=== PATIENT | male | born 1960 | race African-American/Black ===

== ENCOUNTER 2021-10-24 11:35 | Inpatient (IN) | payer OTHER ==
[2021-10-24 12:01] VITALS: BMI 19.2
[2021-10-24] MEDS ORDERED: ACETAMINOPHEN 325 MG TABLET (FP) PO PRN ×2 (12:54)
[2021-10-24] MEDS ORDERED: DICYCLOMINE HCL 10 MG CAPSULE PO PRN (12:54)
[2021-10-24] MEDS ORDERED: MAG HYDROX/AL HYDROX/SIMETH 30 ML UNIT-DOSE CUP PO PRN (12:54)
[2021-10-24] MEDS ORDERED: ONDANSETRON *ODT* 4 MG TABLET SL PRN (12:54)
[2021-10-24] MEDS ORDERED: BISMUTH SUBSALICYLATE 524 MG/30 ML PO PRN (12:54)
[2021-10-24] MEDS ORDERED: LOPERAMIDE HCL 2 MG CAPSULE PO PRN (12:54)
[2021-10-24] MEDS ORDERED: IBUPROFEN 600 MG TABLET (FP) PO PRN (12:54)
[2021-10-24] MEDS ORDERED: LORazepam 1 MG TABLET PO PRN (12:54)
[2021-10-24] MEDS ORDERED: NICOTINE 10 MG CARTRIDGE (INHALER) IH PRN (12:54)
[2021-10-24] MEDS ORDERED: MAGNESIUM HYDROX 2400MG/30ML ORAL SUSPENSION 30 ML CUP PO PRN (12:54)
[2021-10-24] MEDS ORDERED: IBUPROFEN 400 MG TABLET (FP) PO PRN (12:54)
[2021-10-24] MEDS ORDERED: MAGNESIUM CITRATE 300 ML BOTTLE PO PRN (12:54)
[2021-10-24] MEDS: hydrOXYzine PAMOATE 25 MG CAPSULE (FP) PO SCH ×3 (18:18→22:53)
[2021-10-24] MEDS: LORazepam 2 MG TABLET PO SCH ×2 (18:18→22:51)
[2021-10-24] MEDS: METHOCARBAMOL 500 MG TABLET PO PRN (22:50)
[2021-10-24] MEDS: THIAMINE HCL 100 MG TABLET (FP) PO SCH (22:50)
[2021-10-24] MEDS: MELATONIN 5 MG TABLETS PO SCH (22:51)
[2021-10-25] MEDS: LORazepam 2 MG TABLET PO SCH ×4 (05:50→22:19)
[2021-10-25] MEDS: hydrOXYzine PAMOATE 25 MG CAPSULE (FP) PO SCH ×5 (05:51→22:19)
[2021-10-25] MEDS ORDERED: methaDONE HCL 10 MG TABLET PO ONE (08:31)
[2021-10-25] MEDS ORDERED: methaDONE 40 MG, methaDONE 20 MG PO ONE (08:45)
[2021-10-25] MEDS ORDERED: methaDONE HCL 10 MG TABLET ONE (09:57)
[2021-10-25] MEDS ORDERED: methaDONE HCL 40 MG DISPERSABLE TABLET ONE (09:58)
[2021-10-25] MEDS: LISINOPRIL 10 MG TABLET PO SCH (10:22)
[2021-10-25] MEDS: TAMSULOSIN HCL 0.4 MG CAP PO SCH (10:22)
[2021-10-25] MEDS: PRENATAL VITAMINS W/ FOLIC ACID TABLET (FP) PO SCH (10:23)
[2021-10-25 11:39] LABS: HEMATOCRIT 40.7 % (35.4-49); HEMOGLOBIN 13.4 GM/dL (11.7-16.9); MCH 30.1 pg (25.7-33.7); MEAN CELL VOLUME 91.2 fl (80-96); MEAN PLT VOLUME 10.3 fl (7.5-11.1); PLATELET COUNT 310 10^3/uL (134-434); RBC 4.47 M/mm3 (4.00-5.60); RDW 14.6 % (11.9-15.9); WHITE BLOOD COUNT 2.6 K/mm3 (4.0-10.0)
[2021-10-25] MEDS: ELVITEG/COB/EMTRI/TENOF (GENVOYA) TABLET (NF) PO SCH (11:40)
[2021-10-25 12:01] LABS: ALBUMIN 3.3 g/dl (3.4-5.0)
[2021-10-25 12:03] LABS: CREATININE 0.9 mg/dL (0.55-1.3)
[2021-10-25 12:05] LABS: BILIRUBIN,TOTAL 0.5 mg/dL (0.2-1); TOT PROT 8.1 g/dl (6.4-8.2)
[2021-10-25] MEDS: THIAMINE HCL 100 MG TABLET (FP) PO SCH (22:19)
[2021-10-25] MEDS: MELATONIN 5 MG TABLETS PO SCH (22:19)
[2021-10-26] MEDS ORDERED: methaDONE HCL 10 MG TABLET ONE (04:38)
[2021-10-26] MEDS ORDERED: methaDONE HCL 40 MG DISPERSABLE TABLET ONE (04:41)
[2021-10-26] MEDS ORDERED: methaDONE HCL 10 MG TABLET PO SCH (06:00)
[2021-10-26] MEDS: LORazepam 1 MG TABLET PO SCH ×4 (06:45→22:59)
[2021-10-26] MEDS: methaDONE 40 MG, methaDONE 20 MG PO SCH (06:45)
[2021-10-26] MEDS: hydrOXYzine PAMOATE 25 MG CAPSULE (FP) PO SCH ×5 (06:46→22:59)
[2021-10-26] MEDS: ELVITEG/COB/EMTRI/TENOF (GENVOYA) TABLET (NF) PO SCH (07:12)
[2021-10-26] MEDS: TAMSULOSIN HCL 0.4 MG CAP PO SCH (08:31)
[2021-10-26] MEDS: PRENATAL VITAMINS W/ FOLIC ACID TABLET (FP) PO SCH (10:53)
[2021-10-26] MEDS: LISINOPRIL 10 MG TABLET PO SCH (10:53)
[2021-10-26] MEDS: METHOCARBAMOL 500 MG TABLET PO PRN (10:53)
[2021-10-26] MEDS: MELATONIN 5 MG TABLETS PO SCH (22:59)
[2021-10-26] MEDS: THIAMINE HCL 100 MG TABLET (FP) PO SCH (22:59)
[2021-10-27] MEDS ORDERED: LORazepam 0.5 MG TABLET PO PRN
[2021-10-27] MEDS ORDERED: methaDONE HCL 40 MG DISPERSABLE TABLET ONE (04:12)
[2021-10-27] MEDS ORDERED: methaDONE HCL 10 MG TABLET ONE (04:12)
[2021-10-27] MEDS: methaDONE 40 MG, methaDONE 20 MG PO SCH (05:41)
[2021-10-27] MEDS: LORazepam 0.5 MG TABLET PO SCH ×4 (05:41→23:05)
[2021-10-27] MEDS: BENZOCAINE/MENTHOL (CHLORASEPTIC ) LOZENGE MM PRN ×2 (05:45→09:14)
[2021-10-27] MEDS: hydrOXYzine PAMOATE 25 MG CAPSULE (FP) PO SCH ×5 (05:45→23:05)
[2021-10-27] MEDS: ELVITEG/COB/EMTRI/TENOF (GENVOYA) TABLET (NF) PO SCH (08:23)
[2021-10-27] MEDS: TAMSULOSIN HCL 0.4 MG CAP PO SCH (08:25)
[2021-10-27] MEDS: LISINOPRIL 10 MG TABLET PO SCH (10:39)
[2021-10-27] MEDS: PRENATAL VITAMINS W/ FOLIC ACID TABLET (FP) PO SCH (10:40)
[2021-10-27] MEDS: MELATONIN 5 MG TABLETS PO SCH (23:05)
[2021-10-27] MEDS: THIAMINE HCL 100 MG TABLET (FP) PO SCH (23:06)
[2021-10-28] MEDS ORDERED: methaDONE HCL 40 MG DISPERSABLE TABLET ONE (03:59)
[2021-10-28] MEDS ORDERED: methaDONE HCL 10 MG TABLET ONE (03:59)
[2021-10-28] MEDS ORDERED: LORazepam 0.5 MG TABLET PO ONE (05:00)
[2021-10-28] MEDS: methaDONE 40 MG, methaDONE 20 MG PO SCH (05:40)
[2021-10-28] MEDS: hydrOXYzine PAMOATE 25 MG CAPSULE (FP) PO SCH ×2 (05:41→10:24)
[2021-10-28 09:17] VITALS: BP 119/82; PULSE 68; TEMP 97.8
[2021-10-28] MEDS: LISINOPRIL 10 MG TABLET PO SCH (10:23)
[2021-10-28] MEDS: PRENATAL VITAMINS W/ FOLIC ACID TABLET (FP) PO SCH (10:23)
[2021-10-28] MEDS: TAMSULOSIN HCL 0.4 MG CAP PO SCH (10:24)
[2021-10-28] MEDS: ELVITEG/COB/EMTRI/TENOF (GENVOYA) TABLET (NF) PO SCH (12:01)
== END 2021-10-28 12:34 | disposition home or self-care (01) | DRG 773 ==
LOC: YASAS 11:35 → Y6N 16:44
PROVIDERS: ADMIT Allergy & Immunology; ATTEND Surgery
PROC: HZ2ZZZZ Detoxification Services for Substance Abuse Treatment (ICD-10-PCS; principal; 2021-10-24)
DX: F10.230 Alcohol dependence with withdrawal, uncomplicated (principal); F11.20 Opioid dependence, uncomplicated; F14.20 Cocaine dependence, uncomplicated; F19.282 Other psychoactive substance dependence with psychoactive substance-induced sleep disorder; F19.280 Other psychoactive substance dependence with psychoactive substance-induced anxiety disorder; Z21 Asymptomatic human immunodeficiency virus [HIV] infection status; D72.819 Decreased white blood cell count, unspecified; I10 Essential (primary) hypertension; N40.0 Benign prostatic hyperplasia without lower urinary tract symptoms; Z87.891 Personal history of nicotine dependence
CPT/HCPCS: 36415; 80053; 82962; 85027; 86593; 86780; C9803-CS; U0003; U0005

== ENCOUNTER 2023-06-09 16:21 | Inpatient (IN) | payer OTHER ==
[2023-06-09 17:27] VITALS: BMI 19.8
[2023-06-09] MEDS ORDERED: methaDONE HCL 10 MG TABLET (FOR DETOX USE ONLY) PO ONE (20:52)
[2023-06-09] MEDS ORDERED: NALOXONE HCL 0.4 MG/ML VIAL IM PRN (20:53)
[2023-06-09] MEDS ORDERED: IBUPROFEN 400 MG TABLET (FP) PO PRN (20:53)
[2023-06-09] MEDS ORDERED: BENZOCAINE/MENTHOL (CHLORASEPTIC ) LOZENGE MM PRN (20:53)
[2023-06-09] MEDS ORDERED: NALOXONE HCL (KLOXXADO) 8 MG SPRAY NS PRN (20:53)
[2023-06-09] MEDS ORDERED: MAG HYDROX/AL HYDROX/SIMETH 30 ML UNIT-DOSE CUP PO PRN (20:53)
[2023-06-09] MEDS ORDERED: guaiFENesin 600 MG TABLET.ER (FP) PO PRN (20:53)
[2023-06-09] MEDS ORDERED: LOPERAMIDE HCL 2 MG CAPSULE PO PRN (20:53)
[2023-06-09] MEDS ORDERED: POLYETHYLENE GLYCOL (HEALTHYLAX) 3350 17 GM PACKET PO PRN (20:53)
[2023-06-09] MEDS ORDERED: DICYCLOMINE HCL 10 MG CAPSULE PO PRN (20:53)
[2023-06-09] MEDS ORDERED: BENZONATATE 200 MG CAPSULE PO PRN (20:53)
[2023-06-09] MEDS ORDERED: BISMUTH SUBSALICYLATE 524 MG/30 ML PO PRN (20:53)
[2023-06-09] MEDS ORDERED: MAGNESIUM HYDROX 2400MG/30ML ORAL SUSPENSION 30 ML CUP PO PRN (20:53)
[2023-06-09] MEDS ORDERED: ACETAMINOPHEN 325 MG TABLET (FP) PO PRN (20:53)
[2023-06-09] MEDS ORDERED: P-EPHED 60MG/TRIPROLIDI 2.5MG TABLET PO PRN (20:53)
[2023-06-09] MEDS ORDERED: methaDONE HCL 10 MG TABLET (FOR DETOX USE ONLY) ONE (21:59)
[2023-06-09] MEDS: MELATONIN 5 MG TABLETS PO SCH (22:58)
[2023-06-09] MEDS: METHOCARBAMOL 500 MG TABLET PO PRN (22:59)
[2023-06-09] MEDS: diazePAM 5 MG TABLET PO SCH (22:59)
[2023-06-09] MEDS: THIAMINE HCL 100 MG TABLET (FP) PO SCH (22:59)
[2023-06-10] MEDS: diazePAM 5 MG TABLET PO SCH ×4 (05:39→22:43)
[2023-06-10] MEDS: IBUPROFEN 600 MG TABLET (FP) PO PRN ×3 (05:40→19:32)
[2023-06-10] MEDS: METHOCARBAMOL 500 MG TABLET PO PRN ×2 (05:40→22:43)
[2023-06-10] MEDS: PRENATAL VITAMINS W/ FOLIC ACID TABLET (FP) PO SCH (10:05)
[2023-06-10 11:37] LABS: HEMATOCRIT 34.3 % (35.4-49); HEMOGLOBIN 11.4 GM/dL (11.7-16.9); MCH 28.5 pg (25.7-33.7); MCHC 33.2 g/dl (32.0-35.9); MEAN CELL VOLUME 85.7 fl (80-96); MEAN PLT VOLUME 9.2 fl (7.5-11.1); PLATELET COUNT 358 10^3/uL (134-434); RBC 4.01 M/mm3 (4.00-5.60); RDW 15.8 % (11.9-15.9); WHITE BLOOD COUNT 4.5 K/mm3 (4.0-10.0)
[2023-06-10 11:40] LABS: CHLORIDE 110 mmol/L (98-107); POTASSIUM 3.5 mmol/L (3.5-5.1); SODIUM 141 mmol/L (136-145)
[2023-06-10] MEDS: DOLUTEGRAVIR SODIUM 50 MG TABLET (NON-FORMULARY) PO SCH (12:40)
[2023-06-10] MEDS: cloNIDine HCL 0.1 MG TABLET PO PRN ×3 (12:42→22:43)
[2023-06-10] MEDS ORDERED: cloNIDine HCL 0.1 MG TABLET PO ONE (14:56)
[2023-06-10 15:41] LABS: ALBUMIN 2.4 g/dl (3.4-5.0); BLOOD UREA NITROGEN 8.4 mg/dL (7-18); CALCIUM 8.5 mg/dL (8.5-10.1); CO2 25 mmol/L (21-32); GLUCOSE,RANDOM 123 mg/dL (74-106)
[2023-06-10 15:42] LABS: CREATININE 0.7 mg/dL (0.55-1.3); SGPT/ALT 21 U/L (13-61)
[2023-06-10 15:43] LABS: SGOT/AST 21 U/L (15-37)
[2023-06-10 15:44] LABS: BILIRUBIN,TOTAL 0.2 mg/dL (0.2-1); TOT PROT 6.2 g/dl (6.4-8.2)
[2023-06-10 15:48] LABS: ALK PHOS 57 U/L (45-117)
[2023-06-10 15:50] LABS: ANION GAP 6 mmol/L (4-13)
[2023-06-10] MEDS: diazePAM 5 MG TABLET PO PRN (19:33)
[2023-06-10] MEDS: MELATONIN 5 MG TABLETS PO SCH (22:42)
[2023-06-10] MEDS: THIAMINE HCL 100 MG TABLET (FP) PO SCH (22:45)
[2023-06-10] MEDS: TAMSULOSIN HCL 0.4 MG CAP PO SCH (23:15)
[2023-06-11] MEDS: diazePAM 5 MG TABLET PO SCH ×3 (05:23→21:38)
[2023-06-11] MEDS: IBUPROFEN 600 MG TABLET (FP) PO PRN (05:24)
[2023-06-11] MEDS: DOLUTEGRAVIR SODIUM 50 MG TABLET (NON-FORMULARY) PO SCH (07:17)
[2023-06-11] MEDS ORDERED: PATIENT'S OWN MEDICATION (NON-FORMULARY) (Dolutegravir Sodium/Lamivudine [Dovato 50-300 Mg PO SCH (10:00)
[2023-06-11] MEDS ORDERED: methaDONE HCL 10 MG TABLET (FOR DETOX USE ONLY) PO ONE (10:00)
[2023-06-11] MEDS: PRENATAL VITAMINS W/ FOLIC ACID TABLET (FP) PO SCH (10:16)
[2023-06-11] MEDS: cloNIDine HCL 0.1 MG TABLET PO PRN ×2 (17:26→21:38)
[2023-06-11] MEDS: diazePAM 5 MG TABLET PO PRN (17:27)
[2023-06-11] MEDS: METHOCARBAMOL 500 MG TABLET PO PRN (21:38)
[2023-06-11] MEDS: THIAMINE HCL 100 MG TABLET (FP) PO SCH (21:38)
[2023-06-11] MEDS: MELATONIN 5 MG TABLETS PO SCH (21:38)
[2023-06-11] MEDS: TAMSULOSIN HCL 0.4 MG CAP PO SCH (21:40)
[2023-06-12] MEDS: diazePAM 5 MG TABLET PO SCH ×2 (05:41→17:48)
[2023-06-12] MEDS: METHOCARBAMOL 500 MG TABLET PO PRN ×3 (05:42→17:54)
[2023-06-12] MEDS: DOLUTEGRAVIR SODIUM 50 MG TABLET (NON-FORMULARY) PO SCH (07:20)
[2023-06-12] MEDS: PRENATAL VITAMINS W/ FOLIC ACID TABLET (FP) PO SCH (10:26)
[2023-06-12] MEDS: IBUPROFEN 600 MG TABLET (FP) PO PRN ×2 (12:01→17:54)
[2023-06-12] MEDS ORDERED: cloNIDine HCL 0.1 MG TABLET PO ONE (17:04)
[2023-06-12] MEDS: TAMSULOSIN HCL 0.4 MG CAP PO SCH (22:36)
[2023-06-12] MEDS: THIAMINE HCL 100 MG TABLET (FP) PO SCH (22:36)
[2023-06-12] MEDS: MELATONIN 5 MG TABLETS PO SCH (22:36)
[2023-06-13] MEDS: METHOCARBAMOL 500 MG TABLET PO PRN ×2 (01:43→10:29)
[2023-06-13] MEDS: IBUPROFEN 600 MG TABLET (FP) PO PRN (01:43)
[2023-06-13] MEDS ORDERED: diazePAM 5 MG TABLET PO ONE (06:00)
[2023-06-13] MEDS: DOLUTEGRAVIR SODIUM 50 MG TABLET (NON-FORMULARY) PO SCH (07:26)
[2023-06-13 08:59] VITALS: RESP 17; TEMP 97.1
[2023-06-13] MEDS ORDERED: hydrOXYzine PAMOATE 25 MG CAPSULE (FP) PO PRN (09:11)
[2023-06-13] MEDS ORDERED: methaDONE HCL 10 MG TABLET (FOR DETOX USE ONLY) PO ONE (10:00)
[2023-06-13] MEDS: PRENATAL VITAMINS W/ FOLIC ACID TABLET (FP) PO SCH (10:29)
[2023-06-13 12:39] VITALS: BP 176/91; PULSE 69
[2023-06-13] MEDS ORDERED: LISINOPRIL 10 MG TABLET PO SCH (12:45)
[2023-06-13] MEDS ORDERED: SUVOREXANT 10 MG TABLET PO PRN (22:00)
== END 2023-06-13 15:30 | disposition home or self-care (01) | DRG 773 ==
LOC: YASAS 16:21 → Y3N 21:25
PROVIDERS: ADMIT Allergy & Immunology; ATTEND Surgery
PROC: HZ2ZZZZ Detoxification Services for Substance Abuse Treatment (ICD-10-PCS; principal; 2023-06-09)
DX: F11.23 Opioid dependence with withdrawal (principal); F10.230 Alcohol dependence with withdrawal, uncomplicated; F19.282 Other psychoactive substance dependence with psychoactive substance-induced sleep disorder; F19.24 Other psychoactive substance dependence with psychoactive substance-induced mood disorder; Z21 Asymptomatic human immunodeficiency virus [HIV] infection status; I10 Essential (primary) hypertension; N40.0 Benign prostatic hyperplasia without lower urinary tract symptoms; Z87.891 Personal history of nicotine dependence
CPT/HCPCS: 36415; 80053; 80307; 85027; 86593; 86780; 87635; 93005; 93010